=== PATIENT | male | born 1995 | race Caucasian/White ===

== ENCOUNTER 2016-12-29 23:09 | Emergency (ER) | payer SELFPAY ==
[~2016-12-29] VITALS: Ht 170.2 cm; Wt 60.0 kg
[2016-12-29 23:39] VITALS: BP 139/88; PULSE 120; RESP 16; TEMP 98.8; O2SAT 96
[2016-12-30] MEDS ORDERED: SODIUM CHLOR 0.9% 1000 ML INJ 1,000 ML IV ONE ×2 (00:45)
[2016-12-30] MEDS ORDERED: SODIUM CHLORIDE 0.9% FLUSH 10 ML FLUSH IVF PRN (00:45)
[2016-12-30 01:12] LABS: BASOPHIL # 0.1 TH/MM3 (0-0.2); BASOPHIL % 1.4 % (0.0-2.0); EOSINOPHIL # 0.1 TH/MM3 (0-0.4); EOSINOPHIL % 1.7 % (0.0-4.0); HEMATOCRIT 51.6 % (39.0-51.0); HEMO FLAGS DIFF FINAL; LYMPH % 34.5 % (9.0-44.0); LYMPHOCYTE # 1.8 TH/MM3 (1.0-4.8); MEAN CELL VOLUME 90.5 FL (80.0-100.0); MEAN CORPUSCULAR HEMOGLOBIN 30.4 PG (27.0-34.0); MEAN CORPUSCULAR HGB CONC 33.7 % (32.0-36.0); MONO % 6.1 % (0.0-8.0); NEUT % 56.3 % (16.0-70.0); PLATELET COUNT 276 TH/MM3 (150-450); WHITE BLOOD COUNT 5.4 TH/MM3 (4.0-11.0)
--- NOTE | 2016-12-30 01:18 | PD ---
HPI Chief Complaint: Alcohol/Drug Intoxication Time Seen by Provider: 00:39 Travel History International Travel<30 days: No Contact w/Intl Traveler<30days: No Traveled to known affect area: No History of Present Illness HPI Patient is a 21-year-old male who presents to emergency room intoxicated. Reports that he drank heavily today, denies suicidal or homicidal ideations. PFSH Past Medical History Medical History: Denies Significant Hx Past Surgical History Surgical History: No Previous Surgery Social History Alcohol Use: Yes (frequent) Tobacco Use: No Substance Use: No Allergies-Medications (Allergen,Severity, Reaction): Coded Allergies: No Known Allergies (Verified Allergy, Unknown, 12/30/16) Reported Meds & Prescriptions Reported Meds & Active Scripts Active No Active Prescriptions or Reported Medications Review of Systems General / Constitutional: No: Fever Eyes: No: Visual changes HENT: No: Headaches Cardiovascular: No: Chest Pain or Discomfort Respiratory: No: Shortness of Breath Gastrointestinal: No: Abdominal Pain Genitourinary: No: Dysuria Musculoskeletal: No: Pain Skin: No Rash Neurologic: No: Weakness Psychiatric: Positive: Substance Abuse, No: Depression, Suicidal Ideations, Homicidal Ideation Endocrine: No: Polydipsia Hematologic/Lymphatic: No: Easy Bruising Physical Exam Exam Limitations: Intoxication Narrative GENERAL: nad SKIN: Focused skin assessment warm/dry. HEAD: Atraumatic. Normocephalic. EYES: Pupils equal and round. No scleral icterus. No injection or drainage. ENT: No nasal bleeding or discharge. Mucous membranes pink and moist. NECK: Trachea midline. No JVD. CARDIOVASCULAR: Tachycardia. No murmur appreciated. RESPIRATORY: No accessory muscle use. Clear to auscultation. Breath sounds equal bilaterally. GASTROINTESTINAL: Abdomen soft, non-tender, nondistended. Hepatic and splenic margins not palpable. MUSCULOSKELETAL: No obvious deformities. No clubbing. No cyanosis. No edema. NEUROLOGICAL: Awake and alert. No obvious cranial nerve deficits. Motor grossly within normal limits. Normal speech. PSYCHIATRIC: Appropriate mood and affect; insight and judgment normal. Data Data Last Documented VS Vital Signs Date Time Temp Pulse Resp B/P (MAP) Pulse Ox O2 Delivery O2 Flow Rate FiO2 12/29/16 23:39 98.8 120 16 139/88 (105) 96 Room Air Orders Orders Complete Blood Count With Diff (12/30/16 00:38) Comprehensive Metabolic Panel (12/30/16 00:38) Iv Access Insert/Monitor (12/30/16 00:38) Sodium Chloride 0.9% Flush (Ns Flush) (12/30/16 00:45) Drug Screen, Random Urine (12/30/16 00:38) Alcohol (Ethanol) (12/30/16 00:38) Sodium Chlor 0.9% 1000 Ml Inj (Ns 1000 M (12/30/16 00:45) Sodium Chlor 0.9% 1000 Ml Inj (Ns 1000 M (12/30/16 00:45) Labs Laboratory Tests Test 12/30/16 00:55 White Blood Count 5.4 TH/MM3 Red Blood Count 5.70 MIL/MM3 Hemoglobin 17.4 GM/DL Hematocrit 51.6 % Mean Corpuscular Volume 90.5 FL Mean Corpuscular Hemoglobin 30.4 PG Mean Corpuscular Hemoglobin Concent 33.7 % Red Cell Distribution Width 14.0 % Platelet Count 276 TH/MM3 Mean Platelet Volume 7.8 FL Neutrophils (%) (Auto) 56.3 % Lymphocytes (%) (Auto) 34.5 % Monocytes (%) (Auto) 6.1 % Eosinophils (%) (Auto) 1.7 % Basophils (%) (Auto) 1.4 % Neutrophils # (Auto) 3.0 TH/MM3 Lymphocytes # (Auto) 1.8 TH/MM3 Monocytes # (Auto) 0.3 TH/MM3 Eosinophils # (Auto) 0.1 TH/MM3 Basophils # (Auto) 0.1 TH/MM3 CBC Comment DIFF FINAL Differential Comment Blood Urea Nitrogen 10 MG/DL Creatinine 0.89 MG/DL Random Glucose 94 MG/DL Total Protein 9.3 GM/DL Albumin 4.8 GM/DL Calcium Level 8.8 MG/DL Alkaline Phosphatase 116 U/L Aspartate Amino Transf (AST/SGOT) 76 U/L Alanine Aminotransferase (ALT/SGPT) 77 U/L Total Bilirubin 0.2 MG/DL Sodium Level 143 MEQ/L Potassium Level 5.1 MEQ/L Chloride Level 108 MEQ/L Carbon Dioxide Level 27.1 MEQ/L Anion Gap 8 MEQ/L Estimat Glomerular Filtration Rate 107 ML/MIN Ethyl Alcohol Level 391 MG/DL MDM Medical Decision Making Medical Screen Exam Complete: Yes Emergency Medical Condition: Yes Medical Record Reviewed: Yes Interpretation(s) Vital Signs Date Time Temp Pulse Resp B/P (MAP) Pulse Ox O2 Delivery O2 Flow Rate FiO2 12/29/16 23:39 98.8 120 16 139/88 (105) 96 Room Air Differential Diagnosis alcohol intoxication Narrative Course IVF ordered for patient including screening labs. Plan for patient to sober up , will discharge once stable Diagnosis Primary Impression: Alcohol intoxication Patient Instructions: General Instructions Additional Instructions: Please drink alcohol responsibility Follow-up with your primary care doctor and return to ER as needed Scripts No Active Prescriptions or Reported Meds Linh Rios DO Dec 30, 2016 01:18
[2016-12-30 01:29] LABS: ALCOHOL 391 MG/DL (0-5); ALKALINE PHOSPHATASE 116 U/L (45-117); ALT (GPT) 77 U/L (12-78); ANION GAP 8 MEQ/L (5-15); AST (GOT) 76 U/L (15-37); BICARBONATE 27.1 MEQ/L (21.0-32.0); BLOOD UREA NITROGEN 10 MG/DL (7-18); CHLORIDE 108 MEQ/L (98-107); GLOMERULAR FILTRATION RATE 107 ML/MIN (>89); POTASSIUM 5.1 MEQ/L (3.5-5.1); SODIUM (NA) 143 MEQ/L (136-145); TOTAL BILIRUBIN ADULT 0.2 MG/DL (0.2-1.0)
== END 2016-12-30 06:32 | disposition home or self-care (01) ==
LOC: NEPD 23:09
DX: F10.129 Alcohol abuse with intoxication, unspecified (principal); Y90.8 Blood alcohol level of 240 mg/100 ml or more
CPT/HCPCS: 80053; 80307; 85025; 96360; 96361; 99284; J7030

== ENCOUNTER 2017-05-01 00:10 | Emergency (ER) | payer SELFPAY ==
[~2017-05-01] VITALS: Ht 165.1 cm; Wt 64.0 kg
[2017-05-01 00:15] VITALS: BP 141/83; PULSE 110; RESP 20; TEMP 97.8; O2SAT 98
--- NOTE | 2017-05-01 00:36 | PD ---
HPI Chief Complaint: Anxiety Time Seen by Provider: 00:24 Travel History International Travel<30 days: No Contact w/Intl Traveler<30days: No Traveled to known affect area: No History of Present Illness HPI This is a 22-year-old male who presents via EMS for evaluation. 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 He left work and he reports that he had some spasming sensation in his hands and his eyelids. He reports that he had one episode of vomiting. He returned home and called 911 and by the time the ambulance arrived he felt his symptoms resolve. Symptoms lasted for about 20-30 minutes in total. The patient reports that he did not eat anything today because he woke up late. He was told that he may have had an anxiety attack. He reports that he did have a few stressful customers at work. He denies any current symptoms. He denies any headache, chest pain, shortness of breath, nausea, dizziness, lightheadedness, denies any spasming sensation in his lower extremities or his back. He has no other complaints at this time. [facility] Past Medical History ADHD: Yes Depression: Yes Past Surgical History Other Surgery: Yes ( A CHILD ) Social History Alcohol Use: Yes (DAILY ) Tobacco Use: Yes Substance Use: Yes (COCAINE ) Allergies-Medications (Allergen,Severity, Reaction): Coded Allergies: No Known Allergies (Verified Allergy, Unknown, 05/01/17) Reported Meds & Prescriptions Reported Meds & Active Scripts Active No Active Prescriptions or Reported Medications Review of Systems Except as stated in HPI: all other systems reviewed are Neg Physical Exam Narrative GENERAL: Well-developed well-nourished male in no acute distress resting comfortably in hospital bed. SKIN: Warm and dry. HEAD: Atraumatic. Normocephalic. EYES: Pupils equal and round. No scleral icterus. No injection or drainage. ENT: No nasal bleeding or discharge. Mucous membranes pink and moist. NECK: Trachea midline. No JVD. CARDIOVASCULAR: Regular rate and rhythm. No murmur appreciated. RESPIRATORY: No accessory muscle use. Clear to auscultation. Breath sounds equal bilaterally. GASTROINTESTINAL: Abdomen soft, non-tender, nondistended. Hepatic and splenic margins not palpable. MUSCULOSKELETAL: No obvious deformities. No clubbing. No cyanosis. No edema. NEUROLOGICAL: Awake and alert. No obvious cranial nerve deficits. Motor grossly within normal limits. Normal speech. Data Data Last Documented VS Vital Signs Date Time Temp Pulse Resp B/P (MAP) Pulse Ox O2 Delivery O2 Flow Rate FiO2 05/01/17 00:15 97.8 110 20 141/83 (102) 98 Orders Orders Magnesium (Mg) (05/01/17 00:32) Basic Metabolic Panel (Bmp) (05/01/17 00:32) Potassium Chloride (Kcl) (05/01/17 01:15) Ed Discharge Order (05/01/17 01:13) Labs Laboratory Tests Test 05/01/17 00:35 Blood Urea Nitrogen 15 MG/DL Creatinine 0.84 MG/DL Random Glucose 84 MG/DL Calcium Level 8.7 MG/DL Magnesium Level 1.9 MG/DL Sodium Level 138 MEQ/L Potassium Level 3.2 MEQ/L Chloride Level 101 MEQ/L Carbon Dioxide Level 15.8 MEQ/L Anion Gap 21 MEQ/L Estimat Glomerular Filtration Rate 113 ML/MIN [facility] Medical Decision Making Medical Screen Exam Complete: Yes Emergency Medical Condition: Yes Medical Record Reviewed: Yes Differential Diagnosis Carpal spasm versus hyperventilation episode versus anxiety attack versus electrolyte abnormality Narrative Course 19-year-old male presents after having spasming sensation in his eyelids and hands, some nausea and diaphoresis while at work this evening, episode lasted for 20-30 minutes. Certainly this could have been an anxiety attack, he reports that he has has had little to eat today and so we will check his electrolytes for any electrolyte abnormality. Potassium is only slightly low at 3.2, carbon dioxide was low at 15.8 likely secondary to hyperventilation. The patient's other electrolytes are normal. He will be given a dose of potassium chloride here. Upon reexamination he continues to feel asymptomatic. He is stable for discharge. Diagnosis Primary Impression: Hypokalemia Additional Impression: Anxiety Additional Instructions: Stay well hydrated and well-nourished. Follow-up with primary care physician as needed and return for any acutely new or worsening symptoms. Med/Other Pt SpecificInfo: No Change to Meds Scripts No Active Prescriptions or Reported Meds Disposition: DISCHARGE HOME Condition: Stable Alan Castro May 01, 2017 00:36
[2017-05-01 01:09] LABS: BICARBONATE 15.8 MEQ/L (21.0-32.0); CALCIUM 8.7 MG/DL (8.5-10.1); CREATININE 0.84 MG/DL (0.60-1.30); MAGNESIUM 1.9 MG/DL (1.5-2.5)
[2017-05-01] MEDS ORDERED: POTASSIUM CHLORIDE 20 MEQ CONTROLLED RELEASE TAB PO ONE (01:15)
== END 2017-05-01 01:25 | disposition home or self-care (01) ==
LOC: NEPD 00:10
DX: E87.6 Hypokalemia (principal); F41.9 Anxiety disorder, unspecified; Z72.0 Tobacco use
CPT/HCPCS: 80048; 83735; 99283